=== PATIENT | female | born 1970 | race Caucasian/White ===

== ENCOUNTER 2024-01-16 19:46 | Emergency (ER) | payer OTHER, SELFPAY ==
[2024-01-16 20:15] VITALS: BP 118/81; PULSE 68; RESP 20; TEMP 37; O2SAT 99
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
[2024-01-16] MEDS: KETOROLAC 30 MG/ML VIAL (*BKC) 15 MG IM (20:58)
== END 2024-01-16 21:04 | disposition home or self-care (01) ==
PROVIDERS: Emergency Provider Emergency Medicine
DX: S29.012A Strain of muscle and tendon of back wall of thorax, initial encounter (principal); S16.1XXA Strain of muscle, fascia and tendon at neck level, initial encounter; V43.62XA Car passenger injured in collision with other type car in traffic accident, initial encounter
CPT/HCPCS: 96372; 99283; J1885